=== PATIENT | female | born 2000 | race African-American/Black ===

== ENCOUNTER 2022-06-01 20:07 | Emergency (ER) | payer SELFPAY ==
--- NOTE | 2022-06-01 20:32 | ED.DIZZY ---
HPI - Dizziness General Stated Complaint: Dizziness/Nausea Course Course Course Narrative: This is an RME: Additional HPI, ROS, PE not included below will be deferred to primary provider. Patient is a 21 year old female presenting to emergency department for evaluation of dizziness and headache
[2022-06-01 20:33] VITALS: BP 133/83; PULSE 89; RESP 20; TEMP 36.8; O2SAT 100; BMI 32.5
== END 2022-06-01 22:34 | disposition left against medical advice (07) ==
LOC: HO.ED 22:28
PROVIDERS: Emergency Provider Emergency Medicine
DX: R42 Dizziness and giddiness (principal); R11.2 Nausea with vomiting, unspecified
CPT/HCPCS: 99281

== ENCOUNTER 2025-01-19 13:15 | Emergency (ER) | payer MEDICAID, SELFPAY ==
--- NOTE | ~2025-01-19 | CT_ITS ---
CLINICAL HISTORY: left sided abd pain CT abdomen and pelvis with contrast Comparison: None provided Findings: No consolidation or effusion. Small volume free pelvic fluid. Normal uterus and ovaries. Normal kidneys, ureters, and urinary bladder. Stomach and bowel are within normal limits. [id number] colonic fecal loading. Normal gallbladder, bile ducts, liver, spleen, and pancreas. No aortic aneurysm. Bones intact. IMPRESSION: Small volume free pelvic fluid, within physiologic normal limits but potentially indicative of ruptured follicle or hemorrhagic cyst and a possible source of pain. This document has been electronically signed by: Pedro Sam MD on 01/19/2025 19:14:49
[2025-01-19 13:27] VITALS: BP 129/66; PULSE 93; RESP 16; TEMP 36.8; O2SAT 98; BMI 34.5
[2025-01-19 13:49] LABS: MANUAL DIFF FLAG NO
[2025-01-19 13:51] LABS: Hematocrit 36.6 % (37.0-47.0); Hemoglobin 12.7 g/dl (12.0-16.0); Imm Gran Abs Auto 0.02 X10*3/uL (0.00-0.03); Imm Gran Pct Auto 0.3 % (0.0-0.4); Lymphocytes Absolute Auto 2.3 X10*3/uL (1.2-4.9); Mean Corpuscular HGB Conc 34.7 g/dl (31.0-35.0); Mean Corpuscular Hemoglobin 29.3 pg (27.0-33.0); Mean Corpuscular Volume 84.3 fL (80.0-98.0); NRBC Abs Auto 0.000 X10*3/uL (0.0-0.012); NRBC Pct Auto 0.0 /100WBC (0.0-0.2); Platelet Count 308 X10*3/uL (160-400); Red Blood Count 4.34 X10*6/uL (4.20-5.50); White Blood Count 6.7 X10*3/uL (4.8-10.8)
[2025-01-19 14:17] LABS: Alanine Aminotransferase 18 U/L (0-31); Albumin Level 4.7 g/dL (3.5-5.0); Alkaline Phosphatase 61 U/L (39-117); Anion Gap 13 (12-20); Aspartate Amino Transferase 25 U/L (5-31); Blood Urea Nitrogen 11 mg/dL (9-16); Calcium 9.7 mg/dL (8.4-10.2); Carbon Dioxide 23 mmol/L (22-29); Chloride 109 mmol/L (96-108); Creatinine Clr Calc Pharmacy 90.4; Estimated Glomerular Filt Rate > 60; Lipase 14 U/L (8-78); Potassium 4.0 mmol/L (3.3-5.1); Sodium 141 mmol/L (135-145); Total Protein 7.9 g/dL (6.5-8.0)
--- OUTSIDE RECORDS SUMMARY | 2025-01-19 14:57 | XMS_ITS | Clinical Summary ---
Author Organization [facility] Address [address] [place] [address] Phone Care Team Providers Care Wet Primer Powder Blender Name Role Phone Physician, No Pcp Primary Care Provider Unavaila ble Allergies No known active allergies Medications aluminum-magnesi um hydroxide-simeth icone (MAALOX) 200-200-20 mg/5 mL suspension Take 30 mL by mouth 3 (three) times a day if needed for heartburn, indigestion or cramping. 30 mL 5 Active psyllium (METAMUCIL) 3.4 gram packet Take 1 packet by mouth 2 (two) times a day. Mix and drink with at least 8 ounces of water or juice. 60 packet 5 08/22/19 26 Active polyethylene glycol (MIRALAX) 17 gram packetIndication s:Generalized abdominal pain,Constipatio n, unspecified constipation type Take 17 g by mouth 1 (one) time each day. 510 g 11 5 08/23/19 26 Active dicyclomine (BENTYL) 10 mg capsuleIndicatio ns:Generalized abdominal pain,Constipatio n, unspecified constipation type Take 1 capsule (10 mg total) by mouth 3 (three) times a day before meals. 90 each 11 5 08/23/19 26 Active Encounters Date Type Department Care Team Description 01/07/2025 Telephone Gastroenterology - [address] [phone] Meri Biggs MD 11/05/2024 Telephone Gastroenterology - 299 Karolina [address] [facility] [address] [place] [address] Coby Bauer MA 11/01/2024 4:15 PM EDT - 11/01/2024 11:59 PM EDT Hospital Encounter [facility] Scan [address] [place] [id number] Periumbilical abdominal pain Discharge Disposition: Home or Self Care from Last 3 Months Social History Tobacco Use Types Packs/Day Years Used Date Smoking Tobacco: Never Smokeless Tobacco: Never Alcohol Use Standard Drinks/Week Comments Yes 0 (1 standard drink = 0.6 oz pur e alcohol) Comments No Sex and Gender Information Value Date Recorded Sex Assigned at Female 08/15/2024 8:56 AM EDT Legal Sex Female 3:00 PM EST Gender Identity Female 08/15/2024 8:56 AM EDT Sexual Orientation Straight 08/15/2024 8: 56 AM EDT Obstetrics History Last Filed Vital Signs Vital Sign Reading Time Taken Comments Blood Pressure 118/83 08/21/2024 8:39 PM EDT Pulse 78 08/21/2024 8:39 PM EDT Temperature 37 C (98.6 F) 08/21/2024 8:39 PM EDT Respiratory Rate 17 08/21/2024 8:39 PM EDT Oxygen Saturation 100% 08/21/2024 8:39 PM EDT Inhaled Oxygen Concentration - - Weight 93.4 kg (206 lb) 10/03/2024 1:51 PM EDT Height 162.6 cm (5' 4 ) 10/03/2024 1:51 PM EDT Body Mass Index 35.36 10/03/2024 1:51 PM EDT Plan of Treatment Health Maintenance Due Date Last Done Comments Gonorrhea/Chlamydia Screening 2000 Hepatitis B Vaccines (1 of 3 - 19+ 3-dose series) 08/26/2019 DTaP,Tdap,and Td Vaccines (2 - Td or Tdap) 11/09/2021 11/10/2011 HIV Screening 03/24/2022 Social Influencers of Health Screening 03/24/2022 Depression Screening 04/25/2024 COVID-19 Vaccine (2023-2 5 season) 2024 Influenza Vaccine (#1) 2024 Cervical Cancer Screening: P ap Smear 01/28/2025 01/28/2022 HPV Vaccines Completed 02/28/2014, 05/08/2013, 01/18/2013 Meningococcal ACWY Vaccine Completed 10/05, 05/08/2013 Hepatitis A Vaccines Completed 08/14/2018, 10/05/2017 Meningococcal B Vaccine Completed 07/09/19, 10/25/2018 Hepatitis C Screening Completed 03/21/2024 HIB Vaccines Aged Out No longer eligi ble based on patient's age to complete this topic IPV Vaccines Aged Out No longer eligi ble based on patient's age to complete this topic MMR Vaccines Aged Out No longer eligi ble based on patient's age to complete this topic Pneumococcal Vaccine: Pediatrics (0 to 5 Years) and At-Risk Patients (6 to 49 Years) Aged Out No longer eligible b ased on patient's age to complete this topic RSV Immunization Patients Under 20 months Aged Out No longer eligible b ased on patient's age to complete this topic Varicella Vaccines Aged Out No longer eligible based on patient's age to complete this topic Procedures Procedure Name Priority Date/Time Associated Diagnosis Comments CT ABDOMEN PELVIS W CONTRAST Routine 11/01/2024 4:27 PM EDT Periumbilical abdominal pain PAP SMEAR Routine 01/28/2022 from Last 3 Months or Most Recently Relevant to Health Maintenance Results * CT Abdomen Pelvis w Contrast (11/01/2024 4:27 PM EDT) Anatomical Region Laterality Modality Body Computed Tomogra phy 11/02/2024 10:4 5 AM EDT Impressions 11/02/2024 10:55 AM EDT No acute abnormality. Specifically, no definite CT evidence of acute appendicitis, abscess or bowel obstruction. -------- FINAL REPORT -------- Dictated By: Mars Kothari Dictated Date: 11/02/2024 10:45 ET Assigned Physician: Mars Kothari Reviewed and Electronically Signed By: Mars Kothari Signed Date: 11/02/2024 10:55 ET Workstation ID: [id number] Transcribed By: Self Edit Transcribed Date: 11/02/2024 10:45 ET Narrative 11/02/2024 10:55 AM EDT EXAMINATION: CT ABDOMEN/PELVIS WITH IV CONTRAST CLINICAL INFORMATION: Diverticulitis suspected. Periumbilical abdomen pain COMPARISON: None TECHNIQUE: Multidetector CT. Helical examination of the abdomen and pelvis. Imaging performed after the IV administration of contrast. Reformatting in the coronal and sagittal planes. DLP: 1415 mGy-cm Dose optimization was performed including the use of low-dose iterative reconstruction technique with automatic exposure control based on patient size. Type of contrast: ISOVUE 370 Volume of IV contrast: 90 mL Volume of contrast discarded: 0 mL FINDINGS: LIVER: The liver is normal in size, shape, and attenuation. No focal hepatic lesion or biliary ductal dilatation is present. No additional liver findings. BILIARY TRACT: No opaque gallstone. No biliary dilation. SPLEEN: Normal size. No focal lesion. PANCREAS: No suspicious abnormality. ADRENAL GLANDS: No suspicious abnormality. KIDNEYS: No dilation of the intrarenal collecting system. The nephrograms are symmetric. No suspicious renal mass. No opaque renal calculus. Probable tiny cyst lower pole left kidney. URINARY BLADDER: No suspicious abnormality. PELVIC VISCERA: No suspicious abnormality. GASTROINTESTINAL TRACT: Contrast is present into the distal colon. There is no definite colonic mass or localized area of colonic wall thickening. There is no localized pericolonic fat stranding. There is no abscess. There is no extraluminal or intramural gas. There is no significant small bowel dilation. No definite evidence of small bowel wall thickening. No CT evidence of acute appendicitis ABDOMINAL WALL: No significant hernia is appreciated. LYMPHOVASCULAR STRUCTURES AND FLUID: There is no abdominal aortic aneurysm. There are no enlarged lymph nodes. There is no free intraperitoneal fluid. VISUALIZED LOWER CHEST: There is a small amount of nonspecific pericardial fluid or thickening. No chamber deformity. No distention of the IVC. MUSCULOSKELETAL: No acute or suspicious osseous abnormality. Procedure Note Mars Kothari MD - 11/02/2024 EXAMINATION: CT ABDOMEN/PELVIS WITH IV CONTRAST CLINICAL INFORMATION: Diverticulitis suspected. Periumbilical abdomen pain COMPARISON: None TECHNIQUE: Multidetector CT. Helical examination of the abdomen and pelvis. Imaging performed after the IV administration of contrast. Reformatting in the coronal and sagittal planes. DLP: 1415 mGy-cm Dose optimization was performed including the use of low-dose iterativereconstruction technique with automatic exposure control based on patientsize. Type of contrast: ISOVUE 370 Volume of IV contrast: 90 mL Volume of contrast discarded: 0 mL FINDINGS: LIVER: The liver is normal in size, shape, and attenuation. No focalhepatic lesion or biliary ductal dilatation is present. No additionalliver findings. BILIARY TRACT: No opaque gallstone. No biliary dilation. SPLEEN: Normal size. No focal lesion. PANCREAS: No suspicious abnormality. ADRENAL GLANDS: No suspicious abnormality. KIDNEYS: No dilation of the intrarenal collecting system. The nephrogramsare symmetric. No suspicious renal mass. No opaque renal calculus.Probable tiny cyst lower pole left kidney. URINARY BLADDER: No suspicious abnormality. PELVIC VISCERA: No suspicious abnormality. GASTROINTESTINAL TRACT: Contrast is present into the distal colon.There is no definite colonic mass or localized area of colonic wallthickening. There is no localized pericolonic fat stranding. There is noabscess. There is no extraluminal or intramural gas. There is nosignificant small bowel dilation. No definite evidence of small bowel wallthickening. No CT evidence of acute appendicitis ABDOMINAL WALL: No significant hernia is appreciated. LYMPHOVASCULAR STRUCTURES AND FLUID: There is no abdominal aorticaneurysm. There are no enlarged lymph nodes. There is no freeintraperitoneal fluid. VISUALIZED LOWER CHEST: There is a small amount of nonspecific pericardialfluid or thickening. No chamber deformity. No distention of the IVC. MUSCULOSKELETAL: No acute or suspicious osseous abnormality. IMPRESSION: No acute abnormality. Specifically, no definite CT evidence of acute appendicitis, abscess orbowel obstruction. -------- FINAL REPORT -------- Dictated By: Mars Kothari Dictated Date: 11/02/2024 10:45 ET Assigned Physician: Mars Kothari Reviewed and Electronically Signed By: Mars Kothari Signed Date: 11/02/2024 10:55 ET Workstation ID: [id number] Transcribed By: Self Edit Transcribed Date: 11/02/2024 10:45 ET us Jovanna Cassidy NP IMG CT PROCEDURES Final Resul t * Pap smear (01/28/2022) 01/28/2022 Narrative HISTORICAL TESTING LAB RESULTING AGENCY - 02/08/2022 7:46 AM EDT [id number] THINPREP PAP, IMAGED: NEGATIVE FOR SQUAMOUS INTRAEPITHELIAL LESION AND MALIGNANCY . ANA LAURA SHELTON , WANG(ASCP) (CASE ELECTRONICALLY SIGNED 02 06 2022) ADEQUACY: SATISFACTORY ENDOCERVICAL/TRANSFORMATION ZONE COMPONENT PRESENT. SOURCE: THINPREP PAP HPV IF ASCUS, CERVICAL, IMAGED CLINICAL INFORMATION: HPV IF DIAGNOSIS OF ASCUS. HORMONES, [Z01.419] us Fozia Doherty CN LAB CYTOLOGY ORDERABLES Final Result HISTORICAL TESTING LAB RESULTING AGENCY from Last 3 Months or Most Recently Relevant to Health Maintenance Insurance MEDICAID - [place] Care Teams Wet Primer Powder Blender Relationship Specialty Start Date End Date Physician, No Pcp PCP - General 08/15/24
--- OUTSIDE RECORDS SUMMARY | 2025-01-19 14:57 | XMS_ITS ---
Author Name [facility] [place] Organization Unknown History of Medication Use Medication Directions Dispensed Refills Start Date End Date Stat us fluconazole (DIFLUCAN) 150 mg tablet Take 1 tab PO as a single dose, may repeat in 72 hours if no improvement. 06/01/2024 active Problems Problem Status Onset Date Problem Type Date of Resoluti on Source Acute vaginitis active 2024-06-[address] _YALEUC Encounters Encounter Type Encounter Reason Primary Diagnosis Location Date Ambulatory Vaginitis and vulvovaginitis, unspecified Vaginitis and vulvovaginitis, unspecified [facility] 06/01/2024 Ambulatory Vaginitis and vulvovaginitis, unspecified Vaginitis and vulvovaginitis, unspecified [facility] 03/21/2024 Ambulatory Urinary tract infection, site not specified Urinary tract infection, site not specified [facility] 02/13/2024 Ambulatory Wrist Pain Wrist Pain [facility] 12/20/2023 Ambulatory [facility] 12/16/2023 Care Team Organization Name Specialty Phone Email Start Date End Da te [facility] 12/21/2023 [facility] Not Disclosed Primary Care 05/15/2023 [facility] 023 01/16/2023 [facility] 023 [facility] 01/13/2022 01/13/2022
--- OUTSIDE RECORDS SUMMARY | 2025-01-19 14:57 | XMS_ITS | Clinical Summary ---
Author Organization [address] Address [address] [place] [phone] Care Team Providers Care Perianesthesia Manager Name Role Phone Pcp, Does Not Have A Primary Care Provider Unava ilable Allergies No known active allergies Medications ondansetron (ZOFRAN) 8 mg tabletIndicatio ns:Complicated urinary tract infection Take 1 tablet (8 mg total) by mouth every 8 (eight) hours as needed for nausea or vomiting. 20 tablet 4 Active Additional Information Patient not taking.Reported on 06/01/2024 fluconazole (DIFLUCAN) 150 mg tablet Take 1 tab PO as a single dose, may repeat in 72 hours if no improvement. 2 tablet 5 Active Active Problems Problem Noted Date Diagnosed Date Acute vaginitis 06/01/2024 Social History Tobacco Use Types Packs/Day Years Used Date Smoking Tobacco: Never Smokeless Tobacco: Never Tobacco Cessation:Counseling Given: Not Answered Alcohol Use Standard Drinks/Week Comments Yes 0 (1 standard drink = 0.6 oz pur e alcohol) Comments Unknown Sex and Gender Information Value Date Recorded Sex Assigned at Not on file Legal Sex Female 5:50 AM EDT Gender Identity Not on file Sexual Orientation Not on file Last Filed Vital Signs Vital Sign Reading Time Taken Comments Blood Pressure 115/83 06/01/2024 11:33 AM EST Pulse 88 06/01/2024 11:33 AM EST Temperature 36.9 C (98.4 F) 03/21/2024 2:01 PM EST Respiratory Rate 16 06/01/2024 11:33 AM EST Oxygen Saturation 100% 06/01/2024 11:33 AM EST Inhaled Oxygen Concentration - - Weight 90.7 kg (200 lb) 06/01/2024 11:33 AM EST Height 162.6 cm (5' 4 ) 06/01/2024 11:33 AM EST Body Mass Index 34.33 06/01/2024 11:33 AM EST Plan of Treatment Health Maintenance Due Date Last Done Comments MMR Vaccines (1 of 1 - Standard series) 2001 DTaP/TDaP Vaccines (1 - Tdap) 08/26/2007 Varicella Vaccines (1 of 2 - 13+ 2-dose series) 2013 HPV vaccine series (1 - 3-do se series) 08/26/2015 Hepatitis B vaccine series ( 1 of 3 - 19+ 3-dose series) 08/26/2019 Tetanus adult (Td q 10,TDAP once) 2020 Influenza vaccine 11/23/2024 Covid-19 vaccine series ( - 2023- season) 2024 Cervical cancer screening 01/28/2025 01/28/2022 Chlamydia screening 06/01/2025 06/01/2024, 03/21/2024 RSV Immunization (1 - 1-dose 75+ series) 08/26/2075 HIV screening Completed 03/21/2024 Hepatitis C screening Completed 03/21/2024 HIB Vaccines Aged Out No longer eligi ble based on patient's age to complete this topic Hepatitis A Vaccines Aged Out No long er eligible based on patient's age to complete this topic IPV Vaccines Aged Out No longer eligi ble based on patient's age to complete this topic Meningococcal B Vaccine Aged Out No l onger eligible based on patient's age to complete this topic Meningococcal Vaccine Aged Out No sirena sid eligible based on patient's age to complete this topic Pneumococcal Vaccine (2 - 49 years) Aged Out No longer eligible b ased on patient's age to complete this topic Rotavirus Vaccines Aged Out No longer eligible based on patient's age to complete this topic Procedures Procedure Name Priority Date/Time Associated Diagnosis Comments SURESWAB ADVANCED VAGINITIS PLUS, TMA (ORANGE TUBE) (Q) Routine 06/01/2024 11:58 AM EST Acute vaginitis HIV 1/2 AG/AB, W/REFLEXES (Q) Routine 03/21/2024 3:03 PM EST Screening examination for STD (sexually transmitted disease) HEPATITIS C AB WITH REFLEX TO HCV PCR Routine 03/21/2024 3:03 PM EST Screening examination for STD (sexually transmitted disease) from Last 3 Months or Most Recently Relevant to Health Maintenance Results * [facility]ABNORMAL[facility], TMA ([place] Tube) (Q) (06/01/2024 11:58 AM EST) [facility] Advanced Bacterial Vaginosis (BV), TMA NEGATIVE NEGATIVE [facility] Liana Species DETECTED(A) NOT DETECTED [facility] Liana Glabrata NOT DETECTED NOT DETECTED [facility] Comment: Liana species C. albicans, C. tropicalis, C. parapsilosis, and/or C. dubliniensis can be detected, but not differentiated, in the Liana spp. result. Trichomonas vaginalis (TV), TMA NOT DETECTED NOT DETECTED [facility] C. trachomatis RNA, TMA NOT DETECTED NOT DETECTED [facility] Neisseria gonorrhoeae RNA, TMA NOT DETECTED NOT DETECTED [facility] Comment: For additional information, please refer to https://education.Favorite Words/faq/QSR378 (This link is being provided for information/ educational purposes only.) Vaginal 06/01/2024 11:5 8 AM EST 06/02/2024 4:38 AM EST Narrative Resulting Agency Comment Performing Lab: Site ID: [id number] Name: [employer] [facility] Address: [address] [place] [phone] Director: Matty Roberts M.D. us Jian JIMENEZ BODY FLUIDS AND STOOLS ORDERABL ES Final Result [facility] [address] [place] [id number] [place] [address] * HIV 1/2 ag/ab, w/reflexes (Q) (03/21/2024 3:03 PM EST) HIV Ag/Ab, 4th Generation NON-REACT PAOLO NON-REACT PAOLO [facility] Comment: HIV-1 antigen and HIV-1/HIV-2 antibodies were not detected. There is no laboratory evidence of HIV infection. PLEASE NOTE: This information has been disclosed to you from records whose confidentiality may be protected by state law. If your state requires such protection, then the state law prohibits you from making any further disclosure of the information without the specific written consent of the person to whom it pertains, or as otherwise permitted by law. A general authorization for the release of medical or other information is NOT sufficient for this purpose. For additional information please refer to http://[employer].Favorite Words/faq/UZB941 (This link is being provided for informational/ educational purposes only.) The performance of this assay has not been clinically validated in patients less than 2 years old. Blood 03/21/2024 3:03 PM EST 03/22/2024 4:33 AM EST Narrative Resulting Agency Comment Performing Lab: Site ID: [id number] Name: [facility] Address: [address] [place] [phone] Director: Matty Roberts M.D. Aureliano JIMENEZ LAB BLOOD ORDERABLES Final Resu lt [facility] [address] [place] [address] * Hepatitis C Ab with reflex to HCV PCR (03/21/2024 3:03 PM EST) Hepatitis C Ab NON-REACT PAOLO NON-REACT PAOLO [facility] Comment: HCV antibody was non-reactive. There is no laboratory evidence of HCV infection. In most cases, no further action is required. However, if recent HCV exposure is suspected, a test for HCV RNA (test code 01649) is suggested. For additional information please refer to http://[email or web address]/faq/MAE53j8 (This link is being provided for informational/ educational purposes only.) Blood 03/21/2024 3:03 PM EST 03/22/2024 4:33 AM EST Narrative Resulting Agency Comment Performing Lab: Site ID: [id number] Name: [facility] Address: [address] [place] [phone] Director: Matty Roberts M.D. Aureliano JIMENEZ LAB BLOOD ORDERABLES Final Resu lt [facility] [address] [place] [address] from Last 3 Months or Most Recently Relevant to Health Maintenance Insurance [id number] MEDICAID [id number] MEDICAID [id number] MEDICAID Care Teams Perianesthesia Manager Relationship Specialty Start Date End Date Pcp, Does Not Have A PCP - General 03/05/24
[2025-01-19 15:09] VITALS: BP 109/65; PULSE 69; RESP 16; O2SAT 100
[2025-01-19 15:27] VITALS: BP 106/72; PULSE 63; RESP 18; TEMP 37; O2SAT 97
--- NOTE | 2025-01-19 17:38 | ED.ABDPAIN ---
HPI - Abdominal Pain General Chief Complaint: Abdominal Pain Stated Complaint: fever Time Seen by Provider: 01/19/25 16:03 History of Present Illness HPI narrative: Patient is a 24-year-old female presents today with having abdominal pain. Had bloody stool for few days. Patient claims the stool was formed there is blood covering the stool. Complaining of fever up to 101. No pain on urination. Patient had pictures of the stool. Took some Tylenol prior to arrival. Reports some nausea no vomiting. No diaphoresis. Related Data Allergies Allergy/AdvReac Type Severity Reaction Status Date / Time No Known Allergies Allergy Verified 01/19/25 13:29 Review of Systems Review of Systems Positive abdominal pain Yes all other systems are reviewed and are negative [facility] Past Medical History Attestation statement: The following information was validated with the patient. Social History Social History Use of substances other than those prescribed or required for medical reasons: No Advance Directives: No Advance Directives Information Provided: No Physical Exam ED Exam Exam: Appearance: Alert. Oriented X3. No acute distress. Eyes: Pupils equal, round and reactive to light. ENT: Pharynx normal. Neck: Normal inspection. Neck supple. No lymph nodes noted. No crepitus CVS: Normal heart rate and rhythm. Pulses normal. Normal S1 and S2 Respiratory: No respiratory distress. Breath sounds normal. No Wheezing. No rales Abdomen: Soft and nontender. No rigidity. No distention. good BS x4 Skin: Skin warm and dry. Normal skin color. Normal skin turgor. Extremities: No lower extremity edema. Neurovascular intact to all extremities. No Lacerations. No Rash Neuro: Oriented X 3. No motor deficit. No sensory deficit. Moving all extermities. No slurred speech Vital Signs: Vital Signs - 24 hr 01/19/25 13:27 01/19/25 15:09 01/19/25 15:27 Temperature 98.2 F 98.6 F Pulse Rate 93 69 63 Respiratory Rate 16 16 18 Blood Pressure 129/66 109/65 106/72 Pulse Oximetry 98 100 97 Oxygen Delivery Method Room Air Room Air Room Air 01/19/25 17:56 Temperature Pulse Rate 84 Respiratory Rate 16 Blood Pressure 114/80 Pulse Oximetry 100 Oxygen Delivery Method Room Air BMI result Body Mass Index 34.5 Medical Decision Making Medical Decision Making [facility] Narrative: Patient's hemoglobin is 12.7. Complaining of hard stool that is cover with small amount of blood. She has no fever no chills. Her CT scan showed no evidence of kidney stones no obstruction no abscess no perforation question physiologic amount of fluids secondary to hemorrhagic cyst. Patient's urine showed no signs of infection. Repeat abdominal exam is soft nontender. test is negative no related issue. Will discharge patient home follow-up with GI on an outpatient basis. Differential Diagnosis Differential Diagnoses: The differential diagnosis associated with the presentation includes Abdominal pain, kidney stone, diverticulitis Admission/Observation Consideration of admission/observation: Escalation of care including admission/observation considered Lab Data [facility] Lab Attestation statement: I reviewed the patient's lab results. 01/19/25 13:46 01/19/25 13:46 Labs: Lab Results 01/19/25 01/19/25 Range/Units 13:46 20:39 WBC 6.7 (4.8-10.8) X10*3/uL RBC 4.34 (4.20-5.50) X10*6/uL Hgb 12.7 (12.0-16.0) g/dl Hct 36.6 L (37.0-47.0) % MCV 84.3 (80.0-98.0) fL MCH 29.3 (27.0-33.0) pg MCHC 34.7 (31.0-35.0) g/dl RDW 12.8 (11.0-16.0) % Plt Count 308 (160-400) X10*3/uL MPV 8.5 L (9.4-12.3) fL Immature Gran % (Auto) 0.3 (0.0-0.4) % Neut % (Auto) 51.8 (45-73) % Lymph % (Auto) 34.5 (20-40) % [place] % (Auto) 7.8 (2-11) % Eos % (Auto) 4.9 H (0-4) % Baso % (Auto) 0.7 (0-2) % Lymph # (Auto) 2.3 (1.2-4.9) X10*3/uL [place] # (Auto) 0.5 (0.1-1.2) X10*3/uL Eos # (Auto) 0.3 (0.0-0.4) X10*3/uL Baso # (Auto) 0.1 (0.0-0.2) X10*3/uL Abs Immat Gran (auto) 0.02 (0.00-0.03) X10*3/uL Absolute Neuts (auto) 3.5 (2.0-8.3) x10*3/uL Absolute Nucleated RBC 0.000 (0.0-0.012) X10*3/uL Nucleated RBC % (auto) 0.0 (0.0-0.2) /100WBC Sodium 141 (135-145) mmol/L Potassium 4.0 (3.3-5.1) mmol/L Chloride 109 H (96-108) mmol/L Carbon Dioxide 23 (22-29) mmol/L Anion Gap 13 (12-20) BUN 11 (9-16) mg/dL Creatinine 1.05 (0.5-1.4) mg/dL Estim Creat Clear Calc 90.4 Estimated GFR > 60 Random Glucose 78 (60-115) mg/dL Calcium 9.7 (8.4-10.2) mg/dL Total Bilirubin 0.5 (0.0-1.0) mg/dL AST 25 (5-31) U/L ALT 18 (0-31) U/L Alkaline Phosphatase 61 (39-117) U/L Total Protein 7.9 (6.5-8.0) g/dL Albumin 4.7 (3.5-5.0) g/dL Lipase 14 (8-78) U/L Beta HCG, Quant < 2 mIU/mL Urine Color Yellow Urine Appearance Clear Urine pH 6.0 (5.0-9.0) Ur Specific [place] >= 1.030 H (1.005-1.025) Urine Protein Negative (Neg-Trace) mg/dL Urine Glucose (UA) Negative (Negative) mg/dL Urine Ketones Trace (Negative) mg/dL Urine Blood Negative (Negative) Urine Nitrite Negative (Negative) Ur Leukocyte Esterase Negative (Negative) Independent Interpretation I performed an independent interpretation of an: CT Scan (No obstruction no abscess no perforation) Radiology Impression Discussion of test interpretation with radiology: I have reviewed the radiologist's reading. Prescription Management I considered prescription management with: Pain Medication Social Determinants Patient?s care significantly limited by Social Determinants of Health including: Problems related to primary support group Medications Administered Discontinued Medications Generic Name Dose Route Start Last Admin Trade Name Fredesi PRN Reason Stop Dose Admin Iohexol 100 ml 01/19/25 18:13 01/19/25 18:13 Iohexol 350 Mg/Ml 100 Ml Infus..Btl IV 01/19/25 18:14 85 ml ONCE ONE Administration Discharge Plan Discharge Clinical Impression: Abdominal pain Patient Disposition: Home, Self-Care Instructions: Abdominal Pain (ED) Referrals: Antonio Pabon MD [Physician, Gastroenterology] - 01/21/25 Print Language: [place]
[2025-01-19 17:56] VITALS: BP 114/80; PULSE 84; RESP 16; O2SAT 100
[2025-01-19] MEDS: iohexoL 350 MG/ML 100 ML INFUS..BTL IV (18:13)
--- NOTE | 2025-01-19 19:39 | PC.NURSE ---
Report received and care assumed at 1900. Pt found to be awake and alert, without distress noted. she is seen to appear comfortable in the stretcher on her computer as she waits for results and disposition from the provider. The pt offers no concerns/complaints at this time.
[2025-01-19 20:47] LABS: Appearance Urine Clear; Glucose Urine UA Negative (Negative); PH 6.0 (5.0-9.0); Specific Gravity - Urine >= 1.030 (1.005-1.025)
[2025-01-19 21:26] VITALS: BP 104/71; PULSE 78; RESP 16; TEMP 36.8; O2SAT 100
== END 2025-01-19 21:27 | disposition home or self-care (01) ==
PROVIDERS: Emergency Provider Emergency Medicine Emergency Medical Services; PCP Nurse Practitioner Family
DX: R10.2 Pelvic and perineal pain (principal); R50.9 Fever, unspecified; Z79.899 Other long term (current) drug therapy
CPT/HCPCS: 36415; 74177; 80053; 81003; 83690; 84702; 85025; 99284; 99285; Q9967

== ENCOUNTER → 2025-01-19 17:37 | Outpatient (BNV) | payer MEDICAID, SELFPAY | PROVIDERS: Emergency Provider Emergency Medicine Emergency Medical Services; PCP Nurse Practitioner Family; Visit Provider Radiology Diagnostic Radiology | DX: R18.8 Other ascites (principal) | CPT/HCPCS: 74177 ==